=== PATIENT | female | born 1970 | race Caucasian/White ===

== ENCOUNTER 2016-05-29 15:53 | Emergency (ER) | payer OTHER ==
--- NOTE | ~2016-05-29 | CR181 ---
[facility]. [facility] A Service of [facility] & [facility] RADIOLOGY TEXT RESULTS PATIENT: MICHAEL BURNS LOCATION: SED : 68 UNIT #: [id number] AGE: [address]: Padmaja Her SEX: F ORDER DR: [id number] [place] [id number] E MR#: [id number] Acc #: [id number] NAME: MICHAEL BURNS. : 1970 SEX: F STUDY DATE/TIME: 05/29/2016 16:00 UNIT: SED ROOM: STUDY DESCRIPTION: CR Lumbar Spine 2 or 3 Views Attending Physician: Padmaja Her Pa-C Referring Physician: Padmaja Her Pa-C Ordering Physician: Teofilo Not Listed Primary Care Physician: Issa Vail M.D. MEDICAL IMAGING REPORT This report is preliminary unless electronic signature is present. EXAM Lumbar spine, 3 views, 05/29/2016. HISTORY Low back pain status post fall at home in back yard after tripping over something last evening. FINDINGS AP and lateral projections of the lumbar segment show good mineralization of both anterior and posterior elements. They are all anatomically normal without indication of fracture, dislocation, or malignant change of a sclerotic or lytic type. There is no congenital defect noted. The sacroiliac joints are normal. IMPRESSION Normal lumbar spine. Dictated by... Kraig Willett M.D. THIS IS AN ELECTRONICALLY VERIFIED REPORT Kraig Willett M.D. at 05/30/2016 10:26 AM [email or web address] TD: 05/29/2016 18:49 JOB #: [id number] MEDICAL IMAGING REPORT Page 1 of 1
[~2016-05-29 15:53] MED LIST: ALBUTEROL17 GM; ALBUTEROL17 GM INH; ALBUTEROL20 ml INH; AMITRYPTYLINE PO; AMOXICILLIN PO; AMOXIL400 MG/51 PO; AUGMENTIN PO; BACTRIM DS TABL1 TA1 PO; BLOOD PRESSURE PILL PO; CORTISPORI10 ML OTIC AU; DARVOCET-N 1001 TAB PO; DICLOFENAC; DICLOFENAC PO; DOLOBID PO; DOXYCYCLINE PO; FLEXERIL PO; FLEXERIL10 M1 PO; FLEXERIL10 MG PO; HYDROCHLOROTHIA25 MG PO; IBUPROFEN PO; IBUPROFEN800 MG PO; KEFLEX500 M2 PO; LISINOPRIL20 MG PO; LORTAB 7.5-5001 TAB PO; MOBIC PO; MOTRIN600 M2 PO; NAPROXEN PO; NO MEDICATIONS; PHENERGAN PO; PREDNISONE PO; PRILOSEC PO; Q-PAP PO; ROBAXIN500 MG PO; TYLENOL #3 PO; VICODIN 5/1 TAB 5/50 PO; VICODIN 5/500 T1 TAB PO; VISTARIL PO; VOLTAREN75 MG; VOLTAREN75 MG PO; ZANTAC PO; ZOFRAN PO
[2016-11-12] MEDS ORDERED: NO MEDICATIONS (15:44)
== END 2016-05-29 17:00 | disposition home or self-care (01) ==
LOC: SED 15:53
DX: S30.0XXA Contusion of lower back and pelvis, initial encounter (principal); I10 Essential (primary) hypertension; K21.9 Gastro-esophageal reflux disease without esophagitis; F17.210 Nicotine dependence, cigarettes, uncomplicated; W01.0XXA Fall on same level from slipping, tripping and stumbling without subsequent striking against object, initial encounter; Y92.009 Unspecified place in unspecified non-institutional (private) residence as the place of occurrence of the external cause
CPT/HCPCS: 72100; 99283

== ENCOUNTER 2016-09-23 16:50 | Emergency (ER) | payer OTHER ==
[~2016-09-23] VITALS: Ht 172.7 cm; Wt 81.6 kg
--- NOTE | ~2016-09-23 | EKG ---
PATIENT: MICHAEL BURNS UNIT #: [id number] Ventricular Rate: 52 BPM Atrial Rate: 52 BPM P-R Interval: 108 ms QRS Duration: 86 ms Q-T Interval: 500 ms QTC Calculation(Bezet): 465 ms P Windsor: 62 degrees Calculated R Windsor: -26 degrees Calculated T [place]: 59 degrees Diagnosis Line: Sinus bradycardia with short MD Diagnosis Line: T wave abnormality, consider anterior ischemia Diagnosis Line: Prolonged QT Diagnosis Line: Abnormal ECG Diagnosis Line: When compared with ECG of 03-NOV-2014 20:46, Diagnosis Line: Nonspecific T wave abnormality now evident in Diagnosis Line: Lateral leads Diagnosis Line: Confirmed by CAILIN DASH MD ([id number]) on Diagnosis Line: 10/03/2016 9:53:22 PM INTERPRETING MD: GINA
--- NOTE | ~2016-09-23 | CR230 ---
[facility]. [facility] A Service of [facility] & [facility] RADIOLOGY TEXT RESULTS PATIENT: MICHAEL BURNS LOCATION: SED : 68 UNIT #: [id number] AGE: [address]: Padmaja Her SEX: F ORDER DR: [id number] [address] [address] [id number] E MR#: [id number] Acc #: [id number] NAME: MICHAEL BURNS. : 1970 SEX: F STUDY DATE/TIME: 09/23/2016 UNIT: SED ROOM: STUDY DESCRIPTION: CR Shoulder Min 2 View Rt Attending Physician: Padmaja Her Pa-C Ordering Physician: Er [facility]icians Primary Care Physician: Issa Vail M.D. MEDICAL IMAGING REPORT This report is preliminary unless electronic signature is present. EXAM Right shoulder 09/24/1815 INDICATIONS Shoulder pain after fall today. FINDINGS 3 views of the right shoulder were obtained. No fracture or dislocation is seen. There is no AC joint separation. IMPRESSION Normal right shoulder. Dictated by... Jean Carlos Mendez Jr., M.D. THIS IS AN ELECTRONICALLY VERIFIED REPORT Jean Carlos Mendez Jr., M.D. at 09/24/2016 4:12 PM RLK/torri TD: 09/23/2016 23:36 JOB #: [id number] MEDICAL IMAGING REPORT Page 1 of 1
--- NOTE | ~2016-09-23 | CR21 ---
[facility]. [facility] A Service of [facility] & [facility] RADIOLOGY TEXT RESULTS PATIENT: MICHAEL BURNS LOCATION: SED : 68 UNIT #: [id number] AGE: [address]: Padmaja Her SEX: F ORDER DR: [id number] [place] [id number] E MR#: [id number] Acc #: [id number] NAME: MICHAEL BURNS. : 1970 SEX: F STUDY DATE/TIME: 09/23/2016 18:16 UNIT: SED ROOM: STUDY DESCRIPTION: CR Ankle Min 3 Views Rt Attending Physician: Padmaja Her Pa-C Ordering Physician: Physician Non-Staff Primary Care Physician: Issa Vail M.D. MEDICAL IMAGING REPORT This report is preliminary unless electronic signature is present. EXAM Right ankle 09/23/16 at 18:16 INDICATIONS Ankle pain after fall today. FINDINGS AP, lateral, and oblique projections of the ankle show satisfactory integrity of the joint mortise with a smooth articular surface. There is no identifiable fracture, dislocation, or radiopaque foreign body. IMPRESSION Normal ankle. Dictated by... Jean Carlos Mendez Jr., M.D. THIS IS AN ELECTRONICALLY VERIFIED REPORT Jean Carlos Mendez Jr., M.D. at 09/24/2016 4:12 PM GRAHAM/tereza TD: 09/23/2016 23:38 JOB #: [id number] MEDICAL IMAGING REPORT Page 1 of 1
[2016-09-23 18:13] LABS: URINE SOURCE CLEAN CATCH
[2016-09-23 18:15] LABS: BASOPHIL# 0.1 X10e3 (0-0.3); BASOPHIL% 1.2 % (0-2.5); EOSINOPHIL# 0.2 X10e3 (0-0.7); EOSINOPHIL% 2.3 % (0.0-7.0); HEMATOCRIT 43.8 % (35.0-45.0); LYMPHOCYTE# 2.7 X10e3 (1.0-3.5); LYMPHOCYTE% 38.6 % (17.0-45.0); MEAN CELL VOLUME 93.2 FL (83-96); MEAN CORPUSCULAR HEMOGLOBIN 31.9 PG (28-34); MEAN CORPUSCULAR HGB CONC 34.3 g/dL (30-36); MEAN PLATELET VOLUME 8.2 FL (6.5-11.5); MONOCYTE# 0.5 X10e3 (0-1.0); MONOCYTE% 7.3 % (3.0-12.0); NEUTROPHIL# 3.6 X10e3 (1.5-7.1); NEUTROPHIL% 50.6 % (40-75); PLATELET COUNT 234 X10e3 (140-420); RED CELL DISTRIBUTION WIDTH 12.9 % (11.0-15.5); WHITE BLOOD COUNT 7.1 X10e3 (4.0-10.5)
[2016-09-23 18:16] LABS: MICRO INDICATED? YES; URINE APPEARANCE CLEAR; URINE BILIRUBIN NEG (NEG); URINE BLOOD NEG (NEG); URINE COLOR YELLOW; URINE GLUCOSE NEG (NORM); URINE KETONE NEG (NEG); URINE LEUKOCYTE ESTERASE 1+ (NEG); URINE NITRATE NEG (NEG); URINE PROTEIN NEG (NEG)
[2016-09-23 18:16] LABS: DIFF IND NO
[2016-09-23 18:25] LABS: CULTURE INDICATED? YES; URINE BACTERIA 1+ (NEG); URINE RBC NEG /[HPF] (0-2); URINE SQUAMOUS EPITHELIAL CELL OCCAS /[HPF]
[2016-09-23 18:31] LABS: POC - CKMB 2.3 ng/mL (0.0-7.9); POC - TROPONIN <0.05 ng/mL (<=0.05)
[2016-09-23 18:38] LABS: ALBUMIN SERUM 4.2 g/dL (3.5-5.0); ALKALINE PHOSPHATASE 63 U/L (32-92); ALT (SGPT) 36 U/L (10-40); AST (SGOT) 28 U/L (10-42); BILIRUBIN, DIRECT <0.1 mg/dL (0.0-0.2); BILIRUBIN,INDIRECT 0.3 mg/dL (0.0-0.9); BILIRUBIN,TOTAL 0.4 mg/dL (0.2-2.0); BLOOD UREA NITROGEN 12 mg/dL (9-23); BUN/CREATININE RATIO 17.14; CALCIUM SERUM 9.2 mg/dL (8.4-10.2); CARBON DIOXIDE 25 mmol/L (22-31); CHLORIDE 108 mmol/L (100-111); CREATININE SERUM 0.7 mg/dL (0.6-1.4); GLOM FILT RATE Estimated 103.2 mL/min (>60); GLUCOSE FASTING 105 mg/dL (70-110); POTASSIUM 3.6 mmol/L (3.5-5.1); PROTEIN TOTAL SERUM 6.4 g/dL (6.0-8.3); SODIUM 139 mmol/L (135-145)
[2016-11-12] MEDS ORDERED: NO MEDICATIONS (15:44)
== END 2016-09-23 19:39 | disposition left against medical advice (07) ==
LOC: SED 16:50
PROVIDERS: Physician Assistant
DX: R00.1 Bradycardia, unspecified (principal); I10 Essential (primary) hypertension; K21.9 Gastro-esophageal reflux disease without esophagitis; J45.909 Unspecified asthma, uncomplicated; Z90.49 Acquired absence of other specified parts of digestive tract; F17.200 Nicotine dependence, unspecified, uncomplicated
CPT/HCPCS: 73030; 73610; 80048; 80076; 81003; 82553; 84484; 85025; 87086; 87088; 87186; 93005; 99284